=== PATIENT | female | born 1945 | race Caucasian/White ===

== ENCOUNTER 2025-04-17 10:33 | Observation (INO) ==
[2025-04-17] MEDS ORDERED: IOPAMIDOL 100 ML BOTTLE IV ONE (10:34)
[2025-04-17 11:12] LABS: Basophils # (Auto) 0.04 K/mcL (0.00-0.30); Basophils % (Auto) 0.6 % (0.0-2.0); Eosinophils # (Auto) 0.40 K/mcL (0.00-0.70); Eosinophils % (Auto) 6.4 % (0.0-7.0); Hematocrit 43.3 % (34.1-44.9); Hemoglobin 13.8 g/dL (11.2-15.7); Lymphocytes # (Auto) 1.44 K/mcL (1.50-4.80); Lymphocytes % (Auto) 23.2 % (15.5-49.0); Mean Corpuscular HGB Conc 31.9 g/dL (31.0-36.0); Monocytes # (Auto) 0.89 K/mcL (0.10-0.90); Monocytes % (Auto) 14.3 % (1.0-12.0); Neutrophils % (Auto) 55.3 % (38.0-78.0); Platelet Count 239 K/mcL (140-440); RBC 4.63 M/mcL (3.59-5.38); WBC 6.2 K/mcL (4.5-11.0)
[2025-04-17] MEDS: CLOPIDOGREL 300 MG TABLET PO ONE (12:40)
[2025-04-17] MEDS: ASPIRIN 325 MG ENTERIC COATED TABLET PO ONE (12:40)
[2025-04-17 13:00] LABS: ALT/SGPT 21 U/L (<40); AST/SGOT 24 U/L (<32); Albumin 4.1 gm/dL (3.2-5.2); Albumin/Globulin Ratio 1.6 (1.0-2.3); Alkaline Phosphatase 58 U/L (39-117); Anion Gap 9.0 (8.0-16.0); Bilirubin,Total 0.2 mg/dL (0.1-1.0); Blood Urea Nitrogen 18 mg/dL (8-23); Calcium 9.2 mg/dL (8.6-10.4); Carbon Dioxide 28 mmol/L (22-30); Chloride 104 mmol/L (96-108); Globulin 2.6 gm/dL (2.2-3.7); Glucose 89 mg/dL (70-105); Potassium 4.6 mmol/L (3.3-5.1); Sodium 141 mmol/L (133-145)
[2025-04-17 13:17] LABS: INR 1.0 (0.9-1.1); Prothrombin Time 13.9 sec (11.9-14.5)
[2025-04-17 14:37] LABS: INR 0.9 (0.9-1.1); Partial Thromboplastin Time 26.6 sec (20.0-37.0); Prothrombin Time 13.5 sec (11.9-14.5)
[2025-04-17] MEDS ORDERED: IPRATROPIUM/ALBUTEROL 3 ML AMPUL.NEB NEB PRN (18:32)
[2025-04-17] MEDS ORDERED: ACETAMINOPHEN 325 MG TABLET PO PRN (18:32)
[2025-04-17] MEDS ORDERED: ONDANSETRON 4 MG/2 ML VIAL IV PRN (18:32)
[2025-04-17] MEDS ORDERED: DEXTROSE 50% 50 ML VIAL IV PRN (18:32)
[2025-04-17] MEDS ORDERED: DEXTROSE 31 GM ORAL.SUSP PO PRN (18:32)
[2025-04-17] MEDS ORDERED: hydrALAZINE 20 MG/ML VIAL IV PRN (18:32)
[2025-04-17] MEDS: DOCUSATE SODIUM 100 MG CAPSULE PO SCH (20:56)
[2025-04-17] MEDS: SENNOSIDES 1 TABLET PO SCH (20:57)
[2025-04-17] MEDS: INSULIN LISPRO 1 UNIT/0.01 ML UNIT SQ SCH (20:57)
[2025-04-17] MEDS: ATORVASTATIN 40 MG TABLET PO SCH (20:57)
[2025-04-17] MEDS: 0.9 % SODIUM CHLORIDE 10 ML SYRINGE IV SCH (20:57)
[2025-04-17 21:33] LABS: Bilirubin,Urine NEGATIVE (Negative); Color,Urine LT. YELLOW; Glucose,Urine (UA) NEGATIVE (Negative); Ketones,Urine NEGATIVE (Negative); Leukocyte Esterase,Urine TRACE /uL (Negative); Mucus,Urine Few /hpf; PH,Urine 7.5 (5.0-9.0); Protein,Urine NEGATIVE (Negative); Specific Gravity,Urine 1.010 (1.000-1.035); Urobilinogen,Urine 0.2 mg/dL
[2025-04-18 06:36] LABS: Estimated Average Glucose(eAG) 123 mg/dL; Hemoglobin A1C 5.9 % Hgb (4.0-6.0)
[2025-04-18 06:47] LABS: HDL Cholesterol 53 mg/dL (>40); LDL Cholesterol,Calculated 158 mg/dL (<100); Triglycerides 155 mg/dL (<150)
[2025-04-18] MEDS: ASPIRIN 81 MG TAB.CHEW CHEWED SCH (11:15)
[2025-04-18] MEDS: CLOPIDOGREL 75 MG TABLET PO SCH (11:16)
[2025-04-18 16:09] VITALS: TEMP 98.2; O2SAT 96
[2025-04-18] MEDS ORDERED: CARVEDILOL 6.25 MG TABLET PO SCH (17:30)
[2025-04-18] MEDS ORDERED: DORZOLAMIDE 2% OPHTH DROPS 10ML BOTTLE OU SCH (21:00)
[2025-04-18] MEDS ORDERED: LATANOPROST OPHTH DROPS 2.5ML BOTTLE OU SCH (21:00)
[2025-04-18] MEDS ORDERED: FISH OIL 1,000 MG CAPSULE PO SCH (21:00)
[2025-04-19] MEDS ORDERED: MULTIVIT,THER IRON,CA,FA & MIN 1 TABLET PO SCH (09:00)
== END 2025-04-18 16:10 | disposition home or self-care (01) ==
LOC: ED 10:33 → MEDSUR 10:33
PROVIDERS: ADMIT Internal Medicine; ATTEND Internal Medicine